=== PATIENT | female | born 1980 | race Caucasian/White ===

== ENCOUNTER 2023-05-13 11:44 | Emergency (ER) | payer OTHER, MEDICAID, SELFPAY ==
[2023-05-13 11:57] VITALS: BP 150/85; PULSE 86; RESP 17; O2SAT 100; BMI 30.1
--- NOTE | 2023-05-13 12:00 | ECG_ITS ---
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 Measurements Intervals [place] Rate: 72 P: 23 [place]: 145 QRS: 12 QRSD: 99 T: 6 QT: 398 QTc: 437 Interpretive Statements SINUS RHYTHM WITH SINUS ARRHYTHMIA No previous ECG available for comparison Electronically Signed On 05-13-2023 15:14:42 CDT by Jordan Rodríguez M.D. [id number]
--- NOTE | 2023-05-13 12:08 | XRR_ITS ---
PROCEDURE INFORMATION: Exam: XR Chest Exam date and time: 05/13/2023 12:12 PM Age: 42 years old Clinical indication: Chest wall pain; Additional info: Chest pain TECHNIQUE: Imaging protocol: Radiologic exam of the chest. Views: 1 view. COMPARISON: No relevant prior studies available. FINDINGS: Lungs: Asymmetric peripheral left lower lung zone opacification. Pleural spaces: Unremarkable. No pleural effusion. No pneumothorax. Heart/Mediastinum: Unremarkable. No cardiomegaly. Bones/joints: Unremarkable. Intraperitoneal space: Right upper abdomen surgical clips. XR/XR chest 1V portable [id number] IMPRESSION: Peripheral left lower lung zone opacity. Although this could be infectious, pulmonary infarct could have a similar appearance and further evaluation with chest CTA is recommended.
--- NOTE | 2023-05-13 12:09 | ECG_ITS ---
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 Measurements Intervals [place] Rate: 72 P: 23 [place]: 145 QRS: 12 QRSD: 99 T: 6 QT: 398 QTc: 437 Interpretive Statements SINUS RHYTHM WITH SINUS ARRHYTHMIA No previous ECG available for comparison Electronically Signed On 05-13-2023 15:14:44 CDT by Jordan Rodríguez M.D. [id number] f
--- NOTE | 2023-05-13 12:11 | ED_ITS ---
HPI - Chest Pain General: Chief Complaint: Chest Pain Stated Complaint: Chest pain Time Seen by Provider: 05/13/23 11:47 Source: patient Mode of arrival: ambulatory Limitations: no limitations History of Present Illness: Patient is a 42-year-old female presents to ED today with a complaint of right-sided chest pain that she states began shortly after awaking this morning. She feels like the pain is located to her right anterior chest and seems to radiate into the right breast, right arm, and right neck. She states she has had similar pains before that were very brief, only lasting a few minutes, before subsiding on their own. Patient states she was concerned as symptoms did not seem to subside this morning. She states she checked her blood pressure and it was 129/90s which she states is high for her. She has had some very mild accompanying shortness of breath. She is an everday smoker. No cough/recent URI. No swelling to lower extremites or calf pain. No recent surgeries. MD complaint: chest pain Onset (ago): hour(s) Prior episodes: Yes Onset: awoke with symptoms Pain location: right chest Pain radiation: right arm and neck Severity: moderate Quality: sharp Relieving factors: nothing Exacerbating factors: nothing Associated symptoms: Reports dyspnea; Deny abdominal pain, fever(s), nausea, palpitations, syncope or vomiting Treatment prior to arrival: none Risk Factors: Coronary artery disease risk factors: none Thoracic aortic dissection risk factors: none Review of Systems Const: Denies: fever(s), chills, body aches, fatigue or malaise ENMT: Denies: throat pain or odynophagia Card: Reports: chest pain (R sided); Denies: palpitations, irregular heart rhythm, edema, swelling of feet/ankles, lightheadedness, syncope, pre-syncope, dyspnea on exertion, orthopnea, leg pain with exertion or acrocyanosis Resp: Reports: dyspnea; Denies: productive cough, non-productive cough, wheezing, stridor, pain on inspiration, change in phlegm color, hemoptysis or chest congestion GI: Denies: abdominal pain, nausea, vomiting or diarrhea : Denies: flank pain Musc: Denies: neck pain or back pain Neuro: Denies: headache(s) or dizziness Physical Exam Const: COMMON NORMALS: no acute distress, average body habitus, patient oriented x3, no limitations, healthy appearing, alert and well nourished GENERAL APPEARANCE: cooperative ORIENTATION/CONSCIOUSNESS: Yes awake, Yes oriented to person, Yes oriented to place and Yes oriented to time HENMT: COMMON NORMALS: normocephalic and atraumatic HEAD & SCALP: normocephalic and atraumatic Neck/C-Spine: COMMON NORMALS: full ROM, no lymphadenopathy, supple, no meningeal signs, no JVD and No carotid bruits Chest: COMMONS NORMALS: normal inspection of the chest OTHER: tenderness to palpation of R anterior chest wall Resp: COMMON NORMALS: normal respiratory effort and clear to auscultation bilaterally AUSCULTATION: clear to auscultation bilaterally Cardio: COMMON NORMALS: no JVD, regular rate and regular rhythm RATE: regular rate RHYTHM: regular rhythm GI: COMMON NORMALS: Normal to inspection, nondistended, normoactive bowel sounds present, Soft to palpation, non-tender, No hepatosplenomegaly present and no masses PALPATION: Yes Soft to palpation and Yes No hepatosplenomegaly present : COMMON NORMALS: Yes no CVA tenderness BLADDER/KIDNEY EXAM: Yes no CVA tenderness Back/Pelvis: COMMON NORMALS: no CVA tenderness and thoracic and lumbar spine normal to inspection Extremity: COMMON NORMALS: normal to inspection, capillary refill normal, no joint enlargement, no clubbing, cyanosis or edema, no calf tenderness and no pedal edema GENERAL: Yes normal exam except as noted Neuro: COMMON NORMALS: patient oriented x3 SENSORIUM/ORIENTATION: Yes alert, Yes oriented to person, Yes oriented to place and Yes oriented to time MENINGEAL SIGNS: Yes no meningeal signs Skin: COMMON NORMALS: no rashes or lesions noted GENERAL SKIN EXAM: no rashes or lesions noted Course Vital Signs: Vital signs: Vital Signs Pulse Rate 79 05/13/23 12:20 Respiratory Rate 17 05/13/23 12:20 Blood Pressure 150/85 05/13/23 11:57 Pulse Oximetry 95 05/13/23 12:20 Oxygen Delivery Me thod Room Air 05/13/23 12:20 MDM - Chest Pain Medical Decision Making Patient here with complaints of right-sided chest pain starting this morning. She clinically appears in no acute distress. She has had similar pains previously although reportedly states they were short lasting. Blood work here including troponin and D-dimer are negative. D-dimer was ordered secondary to her CXR showing a peripheral left lower lung zone opacity that the radiologist stated could be infectious versus a pulmonary infarct. Neither of these seem consistent with her symptoms today. EKGs showing nothing ischemic. She will be allowed discharge with recommendations to follow up with primary care. Return to ED precautions given. Lab Data 05/13/23 12:10 05/13/23 12:10 Radiology Impressions Chest X-Ray 05/13/23 12:08 IMPRESSION: Peripheral left lower lung zone opacity. Although this could be infectious, pulmonary infarct could have a similar appearance and further evaluation with chest CTA is recommended. Laboratory Results WBC 10.24 10^3/uL (3.29-11.43) 05/13/23 12:10 RBC 4.60 10^6/uL (3.85-5.65) 05/13/23 12:10 Hgb 14.50 g/dL (11.27-16.99) 05/13/23 12:10 Hct 40.9 % (36-47) 05/13/23 12:10 MCV 88.9 fl (85-98) 05/13/23 12:10 MCH 31.5 pg (27-33) 05/13/23 12:10 MCHC 35.5 g/dL (30-55) 05/13/23 12:10 RDW 12.6 % (12.1-15.1) 05/13/23 12:10 Plt Count 352 10^3/cmm (157-399) 05/13/23 12:10 MPV 9.4 fL (7.4-10.4) 05/13/23 12:10 Neut % (Auto) 48.5 % 05/13/23 12:10 Lymph % (Auto) 39.7 % 05/13/23 12:10 [place] % (Auto) 9.5 % 05/13/23 12:10 Eos % (Auto) 1.4 % 05/13/23 12:10 Baso % (Auto) 0.6 % 05/13/23 12:10 Neut # (Auto) 4.97 10^3/uL (1.8-7.7) 05/13/23 12:10 Lymph # (Auto) 4.1 10^3/uL (0.8-4.8) 05/13/23 12:10 [place] # (Auto) 1.0 10^3/uL (0.2-0.9) H 05/13/23 12:10 Eos # (Auto) 0.1 10^3/uL (0.0-0.8) 05/13/23 12:10 Baso # (Auto) 0.1 10^3/uL (0.0-0.1) 05/13/23 12:10 Nucleated RBC % (auto) 0 % 05/13/23 12:10 Nucleated RBCs # 0.0 /100WBC 05/13/23 12:10 D-Dimer 0.47 ug/mLFEU (0-0.59) 05/13/23 10:30 Sodium 141 mmol/L (136-145) 05/13/23 12:10 Potassium 4.0 mmol/L (3.5-5.1) 05/13/23 12:10 Chloride 104 mmol/L (98-107) 05/13/23 12:10 Carbon Dioxide 25 mmol/L (22-29) 05/13/23 12:10 Anion Gap 16.0 (5-19) 05/13/23 12:10 BUN 6 mg/dL (6-20) 05/13/23 12:10 Creatinine 0.7 mg/dL (0.5-0.9) 05/13/23 12:10 GFR Calculation 92.2 mL/min (90-130) 05/13/23 12:10 Glucose 110 mg/dL (65-115) 05/13/23 12:10 Calculated Osmolality 290 mOsm/kg (285-295) 05/13/23 12:10 Calcium 10.1 mg/dL (8.5-10.5) 05/13/23 12:10 Total Bilirubin 0.3 mg/dL (0.15-1.2) 05/13/23 12:10 AST 31 U/L (0-32) 05/13/23 12:10 ALT 38 U/L (0-33) H 05/13/23 12:10 Alkaline Phosphatase 87 U/L (35-105) 05/13/23 12:10 Troponin T Baseline < 6 ng/L (0-10) 05/13/23 12:10 Total Protein 7.5 g/dL (6.6-8.7) 05/13/23 12:10 Albumin 5.0 g/dL (3.5-5.2) 05/13/23 12:10 Globulin 2.5 g/dL (1.3-4.6) 05/13/23 12:10 All radiology interpretation(s) finalized by discharge Discharge Plan Discharge Patient Disposition: Home Clinical Impression: Right-sided chest wall pain Condition: Stable Prescriptions: No Action Claritin 10 mg Tablet 10 mg PO DAILY Nexium 20 mg Capsule,Delayed Release(Dr/Ec) 20 mg PO DAILY Discharge Orders: Discharge ED (Routine); Ordered 05/13/23 Ordered By: Sravanthi Tucker Coding Level of Care Code ED Negative Cleaner for Lotus Daniels
[2023-05-13] MEDS: ketorolac 30 mg/mL INJ IVP (12:17)
[2023-05-13 12:20] VITALS: PULSE 79; RESP 17; O2SAT 95
[2023-05-13 12:35] LABS: Basophils # 0.1 10^3/uL (0.0-0.1); Basophils % 0.6 %; Eosinophils # 0.1 10^3/uL (0.0-0.8); Eosinophils % 1.4 %; Hematocrit 40.9 % (36-47); Lymphocytes # 4.1 10^3/uL (0.8-4.8); Lymphocytes % 39.7 %; Mean Corpuscular HGB Conc 35.5 g/dL (30-55); Mean Corpuscular Hemoglobin 31.5 pg (27-33); Mean Corpuscular Volume 88.9 fl (85-98); Mean Platelet Volume 9.4 fL (7.4-10.4); Monocytes % 9.5 %; Neutrophils # 4.97 10^3/uL (1.8-7.7); Neutrophils % 48.5 %; Nucleated Red Blood Cells % 0 %; Platelet Count 352 10^3/cmm (157-399); Red Cell Distribution Width 12.6 % (12.1-15.1); White Blood Count 10.24 10^3/uL (3.29-11.43)
[2023-05-13 12:52] LABS: Troponin(5th) Baseline < 6 ng/L (0-10)
[2023-05-13 12:53] LABS: Alanine Aminotransferase 38 U/L (0-33); Alkaline Phosphatase 87 U/L (35-105); Aspartate Amino Transferase 31 U/L (0-32); Blood Urea Nitrogen 6 mg/dL (6-20); Calcium 10.1 mg/dL (8.5-10.5); Carbon Dioxide 25 mmol/L (22-29); Chloride 104 mmol/L (98-107); Globulin 2.5 g/dL (1.3-4.6); Glomerular Filtration Rate 92.2 mL/min (90-130); Glucose 110 mg/dL (65-115); Osmolality Calculated 290 mOsm/kg (285-295); Sodium 141 mmol/L (136-145); Total Bilirubin 0.3 mg/dL (0.15-1.2); Total Protein 7.5 g/dL (6.6-8.7)
[2023-05-13 13:00] VITALS: BP 134/89; PULSE 81; O2SAT 98
[2023-05-13 13:12] LABS: D Dimer 0.47 ug/mLFEU (0-0.59)
[2023-05-13 13:34] VITALS: BP 114/60; PULSE 81; O2SAT 97
== END 2023-05-13 13:35 | disposition home or self-care (01) ==
PROVIDERS: Emergency Provider Physician Assistant
DX: R07.89 Other chest pain (principal)
CPT/HCPCS: 71045; 80053; 84484; 85025; 85378; 93005; 96374; 99285; J1885